=== PATIENT | female | born 1950 | race Caucasian/White ===

== ENCOUNTER 2023-04-02 10:40 | Emergency (ER) | payer MEDICARE, OTHER, SELFPAY ==
[2023-04-02] VITALS (18 sets, daily range): BP systolic 111–150; BP diastolic 65–83; PULSE 61–77; RESP 18; TEMP 36; O2SAT 92–99; BMI 22.2
--- NOTE | 2023-04-02 11:03 | ED.NURSE ---
#20 sl placed L AC, ekg done
--- NOTE | 2023-04-02 11:10 | ED_ITS ---
HPI - Chest Pain General Date Seen: 04/02/23 Chief Complaint: Chest Pain Stated Complaint: chest pains Time Seen by Provider: 04/02/23 11:02 History of Present Illness HPI narrative: This is a very pleasant 73-year-old female with a past medical history high cholesterol, hypothyroidism, osteoarthritis with previous left hip replacement, also COVID about 4 months ago (with recovery) presenting to the ER this morning for chest discomfort. When she woke up this morning she was having an achy pain in her right shoulder, which is not uncommon for her because she knows she has arthritis there. She took a diclofenac pill for that. She does not typically have to take diclofenac and does not take a lot of NSAIDs. She does not have any known history of gastritis or GERD. At about 10 15 this morning she is in her car preparing to going to her [employer] meeting. She began to have bad discomfort in her central chest. It made her nauseous. She was slightly sweaty. The discomfort lasted about a few minutes and then resolved but since then she has had ongoing mild nausea. No other definite symptoms. No syncope. No palpitations. No difficulty breathing. No pleuritic chest pain. No swelling in her legs. No pain through to her back or down to her abdomen. No fever. She has not had any other recent similar chest pains. She had been evaluated at an ER in the past (when she lived in [place]) and had a negative workup. She does not have any known heart disease. A few months ago when she was going through [place] she did have some fairly elevated blood pressure readings, apparently systolic blood pressure over 200, and had been on about 3 weeks of blood pressure medication but since then blood pressure has been much more normal. She is not on any long-term blood pressure medications. She does not take any anticoagulants. She traveled down from [place] in February. She does not have any leg swelling. Related Data Home Medications Medication Instructions Recorded Confirmed atorvastatin 04/02/23 buproprion 04/02/23 levothyroxine 04/02/23 trazodone 04/02/23 Allergies Allergy/AdvReac Type Severity Reaction Status Date / Time No Known Drug Allergies Allergy Verified 04/02/23 10:46 Review of Systems Narrative negative PFSH PFSH Social History Smoking Status: Never smoker How often do you have a drink containing alcohol: 2-4 times a month AUDIT-C Alcohol total score: 2 Non-prescribed substance use: denies use Exam Narrative Exam Narrative: Constitutional: Appears well-developed and well-nourished. Alert. Conversant. Non toxic. HENT: Head: Atraumatic. Nose: Nose normal. Mouth/Throat: Oral mucosa is clear and moist. no trismus. Pharynx normal. Tonsils symmetric. No tonsillar enlargement, erythema, or exudate. Eyes: Conjunctivae normal. EOM normal. Pupils equal, round, and reactive to light. No scleral icterus. Neck: Normal range of motion. Neck supple. No tracheal deviation present. No JVD Cardiovascular: Normal rate, regular rhythm. No gallop. No friction rub. No murmur heard. Symmetric radial and PT artery pulses Pulmonary/Chest: Effort normal. No stridor. No respiratory distress. No wheezes. No rales. No rhonchi . No tenderness. Abdominal: Soft. Bowel sounds normal. No distension. No mass. Minimal left upper quadrant tenderness. No rebound. No guarding. Musculoskeletal: RUE: Normal range of motion. No tenderness. No deformity LUE: Normal range of motion. No tenderness. No deformity RLE: Normal range of motion. No edema. No tenderness. No deformity LLE: Normal range of motion. No edema. No tenderness. No deformity Lymph: No cervical adenopathy. Neurological: Alert and oriented to person, place, and time. Normal strength. CN II-VII intact. No sensory deficit. GCS eye subscore is 4. GCS verbal subscore is 5. GCS motor subscore is 6. Normal coordination Skin: Skin is warm and dry. Good cap refill x4 extremities. No rash noted. No pallor. Normal capillary refill. Psychiatric: Normal mood. Normal affect. She is very polite Const Vital Signs, click to edit/add: Vital Signs - 24 hr 04/02/23 10:43 04/02/23 11:02 04/02/23 11:03 Temperature 96.8 F L Pulse Rate 77 77 Pulse Rate [Pulse Oximeter] 77 Respiratory Rate 18 Blood Pressure 144/65 H Blood Pressure [Left Upper Arm] 150/67 H Pulse Oximetry 98 97 97 Oxygen Delivery Method Room Air 04/02/23 11:30 04/02/23 11:32 04/02/23 11:33 Temperature Pulse Rate 62 61 62 Pulse Rate [Pulse Oximeter] Respiratory Rate Blood Pressure 125/82 Blood Pressure [Left Upper Arm] Pulse Oximetry 99 97 97 Oxygen Delivery Method 04/02/23 12:00 04/02/23 12:01 04/02/23 12:30 Temperature Pulse Rate 64 62 67 Pulse Rate [Pulse Oximeter] Respiratory Rate Blood Pressure 128/76 Blood Pressure [Left Upper Arm] Pulse Oximetry 98 96 99 Oxygen Delivery Method 04/02/23 12:32 04/02/23 12:33 04/02/23 13:03 Temperature Pulse Rate 64 64 Pulse Rate [Pulse Oximeter] Respiratory Rate Blood Pressure 129/83 Blood Pressure [Left Upper Arm] Pulse Oximetry 98 97 92 Oxygen Delivery Method 04/02/23 13:30 04/02/23 13:32 04/02/23 14:00 Temperature Pulse Rate 67 66 67 Pulse Rate [Pulse Oximeter] Respiratory Rate Blood Pressure 113/71 Blood Pressure [Left Upper Arm] Pulse Oximetry 97 98 98 Oxygen Delivery Method 04/02/23 14:02 04/02/23 14:30 04/02/23 14:32 Temperature Pulse Rate 69 69 66 Pulse Rate [Pulse Oximeter] Respiratory Rate Blood Pressure 119/70 111/71 Blood Pressure [Left Upper Arm] Pulse Oximetry 97 97 96 Oxygen Delivery Method Course Vital Signs Vital signs: Initial Vital Signs Temperature 96.8 F L 04/02/23 10:43 Temperature Source Temporal Artery Scan 04/02/23 10:43 Pulse Rate 77 04/02/23 10:43 Respiratory Rate 18 04/02/23 10:43 Blood Pressure 150/67 H 04/02/23 10:43 Blood Pressure Mean 94 04/02/23 10:43 Blood Pressure Position Supine 04/02/23 10:43 Pulse Oximetry 98 04/02/23 10:43 Oxygen Delivery Method Room Air 04/02/23 10:43 Vital Signs Temperature 96.8 F L 04/02/23 10:43 Pulse Rate 77 04/02/23 10:43 Respiratory Rate 18 04/02/23 10:43 Blood Pressure 150/67 H 04/02/23 10:43 Pulse Oximetry 98 04/02/23 10:43 Oxygen Delivery Method Room Air 04/02/23 10:43 Temperature 96.8 F L 04/02/23 10:43 Pulse Rate 66 04/02/23 14:32 Respiratory Rate 18 04/02/23 10:43 Blood Pressure 111/71 04/02/23 14:32 Pulse Oximetry 96 04/02/23 14:32 Oxygen Delivery Method Room Air 04/02/23 10:43 MDM - Chest Pain MDM Narrative Medical decision making narrative: This patient presents to the ER today for evaluation of chest pain[]. Differential was broad. No evidence of palpitations, syncope or other cardiac dysrhythmia. We considered possible ACS, however workup with EKG and troponin is negative. HEART score is 3. Given time since onset of symptoms, we did check delta enzymes here in the ER []. EKG shows no evidence for pericarditis. Clinical presentation not suggestive of myocarditis. Chest x-ray shows no evidence for pneumonia, pneumothorax, pulmonary edema, pleural effusion, rib fracture, cardiomegaly. Mediastinum is normal on the x-ray. The patient has no ripping or tearing pain through to the back and has symmetric pulses on exam, no other acute neuro findings so I doubt aortic dissection. Risk of radiation and contrast exposure would outweigh the benefit of CT angiogram. We considered PE for this patient. She has no signs of DVT and no history of PE or DVT. She did have a recent about a month ago travel from [place] down here to [place]. Overall low risk. d dimer is normal. No wheezing or bronchospasm to suggest COPD/asthma. No signs of chest wall cellulitis, shingles, injury. She did take an NSAID this morning for her shoulder pain but has no history of GERD, esophagitis, or gastritis. Lipase normal. No other signs of severe intra-abdominal pathology such as cholecystitis, early appendicitis. Would hold off on advanced imaging of her abdomen for now. With reasonable clinical confidence, I think the patient is safe for outpatient follow up. Discussed return precautions. Questions answered. Patient voices comfort with the plan. Discussed the need for outpatient follow-up with primary care and potentially stress testing or further workup if she has any more episodes of chest pain. Precautions for return to the ER reviewed. Lab Data Labs: Lab Results 04/02/23 04/02/23 Range/Units 10:58 14:06 WBC 4.41 L (4.50-11.00) K/uL RBC 4.09 (4.00-5.20) m/uL Hgb 12.9 (12.0-16.0) gm/dL Hct 39.2 (33.0-51.0) % MCV 96 (80-100) fL MCH 32 (26-34) pg MCHC 33 (32-36) gm/dL RDW Coeff of [place]lick 12.4 (11.5-15.5) % Plt Count 194 (140-440) K/uL Neut % (Auto) 56.5 (42.0-72.0) % Lymph % (Auto) 30.8 (20-44) % [place] % (Auto) 9.5 (0.0-11.0) % Eos % (Auto) 2.5 (0.0-7.0) % Baso % (Auto) 0.5 (0.0-3.0) % Neut # (Auto) 2.50 (1.7-7.0) K/uL Lymph # (Auto) 1.40 (0.90-2.90) K/uL [place] # (Auto) 0.40 (0.00-0.90) K/UL Eos # (Auto) 0.10 (0.00-0.50) K/uL Baso # (Auto) 0.00 (0.00-0.30) K/uL Abs Immat Gran (auto) 0.00 (0.00-0.30) K/uL Imm/Tot Granulo (auto) 0.2 % D-Dimer Quant (PE/DVT) 0.31 (0.00-0.50) ug/ml Sodium 136 (135-149) mmol/L Potassium 3.7 (3.6-5.1) mmol/L Chloride 103 (96-114) mmol/L Carbon Dioxide 28 (20-32) mmol/L BUN 17 (7-30) mg/dL Creatinine 0.8 (0.5-1.5) mg/dL Estimated Creat Clear 54.18 Estimated GFR 78 ml/min Glucose 78 (60-115) mg/dL Calcium 8.8 (8.4-10.6) mg/dL Total Bilirubin 0.6 (0.1-1.5) mg/dL AST 25 (12-35) U/L ALT 24 (4-35) U/L Alkaline Phosphatase 50 (40-150) U/L Troponin I < 0.01 L < 0.01 L (0.01-0.04) ng/mL Total Protein 6.6 (6.0-8.3) g/dL Albumin 4.0 (3.3-5.0) g/dL Lipase 163 (23-300) U/L Imaging Data Chest x-ray: Attestation: I have reviewed the pertinent imaging results. Radiologist's impression: IMPRESSION: Negative chest. ECG Data Attestation: I personally reviewed and interpreted this ECG as follows: ECG interpretation date: 04/02/23 ECG interpretation time: 11:10 Interpretation: Normal sinus rhythm rate 81 MO 136 QRS axis normal axis. No pathologic Q-waves. ST segment/T wave: No ST segment elevation or depression. No T-wave inversion. QTc: 450 Discharge Plan Discharge Clinical Impression: Chest pain Patient Disposition: Home, Self-Care Condition: Stable Instructions: Chest Pain (ED) Additional Instructions: As we discussed, please come back to the ER right away if you have any concerning symptoms especially worsening episodes of chest pain, trouble breathing, fainting, or any concerns. Please recheck with your regular doctor within the next 5-7 days. Prescriptions: No Action buproprion levothyroxine atorvastatin trazodone Follow Up/Referrals: Provider,Not a Local [Primary Care Provider] - Stand Alone Forms: [employer] Info Instructions
--- NOTE | 2023-04-02 11:29 | CRLHL7_ITS ---
For Patients: As a result of the Century Cures Act, medical imaging exams and procedure reports are released immediately into your electronic medical record. You may view this report before your referring provider. If you have questions, please contact your health care provider. INDICATION: Chest pain TECHNIQUE: Two view chest. FINDINGS: The lungs are clear. The heart, mediastinum and pulmonary vessels are of normal size. There is no evidence of pleural disease. IMPRESSION: Negative chest. Dictated by Ted Borjas MD @ 04/02/2023 12:23:14 PM (Electronically Signed)
[2023-04-02 11:35] LABS: Basophils Percent Auto 0.5 % (0.0-3.0); Eosinophils Percent Auto 2.5 % (0.0-7.0); Hematocrit 39.2 % (33.0-51.0); Hemoglobin* 12.9 gm/dL (12.0-16.0); Immature Granulocytes Pct Auto 0.2 %; Lymphocytes Percent Auto 30.8 % (20-44); Mean Corpuscular HGB Conc 33 gm/dL (32-36); Mean Corpuscular Hemoglobin 32 pg (26-34); Mean Corpuscular Volume 96 fL (80-100); Monocytes Percent Auto 9.5 % (0.0-11.0); Neutrophils Percent Auto 56.5 % (42.0-72.0); Platelet Count* 194 K/uL (140-440); RDW Coefficient of Variation % 12.4 % (11.5-15.5); Red Blood Count 4.09 m/uL (4.00-5.20); White Blood Count* 4.41 K/uL (4.50-11.00)
[2023-04-02] MEDS: ASPIRIN 81 MG TAB.CHEW 324 MG PO (11:36)
[2023-04-02] MEDS: ONDANSETRON 2 MG/ML inj 4 MG IVP (11:36)
[2023-04-02 11:38] LABS: Slide Review Reflex No
[2023-04-02 11:44] LABS: Chloride* 103 mmol/L (96-114); Potassium* 3.7 mmol/L (3.6-5.1); Sodium* 136 mmol/L (135-149)
[2023-04-02 11:46] LABS: Aspartate Amino Transferase* 25 U/L (12-35); Bilirubin Total* 0.6 mg/dL (0.1-1.5); Carbon Dioxide* 28 mmol/L (20-32); Creatinine* 0.8 mg/dL (0.5-1.5); Est. Creatinine Clearance* 54.18; Estimated Glomerular Filt Rate 78 ml/min; Total Protein* 6.6 g/dL (6.0-8.3)
[2023-04-02 11:47] LABS: Alanine Aminotransferase* 24 U/L (4-35); Alkaline Phosphatase* 50 U/L (40-150); Blood Urea Nitrogen* 17 mg/dL (7-30); Calcium* 8.8 mg/dL (8.4-10.6); D Dimer Quantitative* 0.31 ug/ml (0.00-0.50); Glucose* 78 mg/dL (60-115); Lipase* 163 U/L (23-300)
[2023-04-02 12:01] LABS: Troponin I* < 0.01 ng/mL (0.01-0.04)
[2023-04-02 14:46] LABS: Troponin I* < 0.01 ng/mL (0.01-0.04)
== END 2023-04-02 15:13 | disposition home or self-care (01) ==
PROVIDERS: Emergency Provider Emergency Medicine
DX: R07.9 Chest pain, unspecified (principal)
CPT/HCPCS: 36415; 71046; 80053; 83690; 84484; 85025; 85379; 93005; 96374; 99284; A9270; J2405

== ENCOUNTER 2023-05-26 15:59 | Outpatient (CLI) | payer MEDICARE, OTHER, SELFPAY | END 2023-05-26 16:00 | disposition home or self-care (01) | PROVIDERS: Visit Provider Family Medicine | DX: R53.83 Other fatigue (principal); H53.9 Unspecified visual disturbance | CPT/HCPCS: 80053; 84443; 85651; 86140 ==

== ENCOUNTER 2023-07-25 14:51 | Outpatient (CLI) | payer MEDICARE, OTHER, SELFPAY | END 2023-07-25 14:52 | disposition home or self-care (01) | LOC: AMB 07-27 09:44 | PROVIDERS: PCP Family Medicine; Visit Provider Family Medicine | DX: R53.1 Weakness (principal); I10 Essential (primary) hypertension | CPT/HCPCS: A0998 ==

== ENCOUNTER 2023-07-25 15:15 | Emergency (ER) | payer MEDICARE, OTHER, SELFPAY ==
[2023-07-25] VITALS (9 sets, daily range): BP systolic 172–184; BP diastolic 90–97; PULSE 77–89; RESP 20; TEMP 37; O2SAT 97–98; BMI 22.2
[2023-07-25] MEDS: lisinopriL 20 MG TABLET PO (19:54)
--- NOTE | 2023-07-25 20:11 | ED_ITS ---
HPI - General Adult General Date Seen: 07/25/23 Chief complaint: Hypertension Stated complaint: High BP Time Seen by Provider: 07/25/23 19:26 Source: patient Mode of arrival: ambulatory Limitations: no limitations History of Present Illness HPI narrative: Patient is a 73-year-old woman who comes in secondary to elevated blood pressure readings. She notes that last week she had some respiratory symptoms and had a positive COVID test. She tested negative today and those symptoms have improved. She says that she had COVID earlier in the year and had problems with her blood pressure at that time. She was in [place] at the time and was seen in an ER, started on Paxlovid and lisinopril. She said that she took the lisinopril for a while but was watching her blood pressures and they seem to normalize so she discontinued the lisinopril. Otherwise, she says her blood pressures do not tend to be elevated. However, today she noted high blood pressures around 200 systolic. She notes that she felt somewhat shaky and lightheaded, she did not have severe headache or chest pain, difficulty breathing, fainting, confusion, or other neurologic changes or any other complaints. She is now feeling fine. She does not smoke, here today with her . Related Data Home Medications Medication Instructions Recorded Confirmed atorvastatin 04/02/23 05/26/23 buproprion 150 mg DAILY 04/02/23 05/26/23 levothyroxine DAILY 04/02/23 05/26/23 trazodone 25 mg HS 04/02/23 05/26/23 bupropion HCl 75 mg tablet 75 mg PO DAILY 07/25/23 07/25/23 Previous Rx's Medication Instructions Recorded lisinopril 20 mg tablet 20 mg PO DAILY #30 tabs 07/25/23 Allergies Allergy/AdvReac Type Severity Reaction Status Date / Time No Known Drug Allergies Allergy Verified 07/25/23 15:28 Review of Systems Status of ROS: Reports: 10 or more systems reviewed and unremarkable except as noted in History and below [facility] Medical History Vision changes ?H53.9 - Unspecified visual disturbance (ICD-10) Fatigue ?R53.83 - Other fatigue (ICD-10) Social History Smoking Status: Never smoker How often do you have a drink containing alcohol: 2-4 times a month AUDIT-C Alcohol total score: 2 Non-prescribed substance use: denies use Exam Narrative: Exam Narrative: Vital signs as noted above. In general, an alert, well-appearing patient. Head: Normocephalic, atraumatic. Eyes: Pupils are equal reactive. Extraocular movements are full. Conjunctivae are normal. ENT: Mucous membranes are moist. Neck: Supple without lymphadenopathy. Heart: Regular rate and rhythm. No murmur or rub. Lungs: Clear bilaterally. No increased work of breathing, crackles or wheezes. Abdomen: Soft and nontender. No organomegaly. Extremities: Well perfused. No edema. No calf tenderness. Pulses intact. Neurologic: Patient is alert and oriented to person and place. Speech is fluent. Face is symmetric. Moves all extremities equally. Affect: Normal. Skin: Warm and dry. Well perfused. Const: Vital Signs, click to edit/add: Vital Signs - 24 hr 07/25/23 15:28 07/25/23 18:24 07/25/23 18:25 Temperature 98.6 F Pulse Rate 80 77 Pulse Rate [Pulse Oximeter] 89 Respiratory Rate 20 Blood Pressure 184/97 H Blood Pressure [Ri ght Upper Arm] 184/96 H Pulse Oximetry 98 98 98 Oxygen Delivery Me thod Room Air 07/25/23 18:30 07/25/23 18:31 07/25/23 18:45 Temperature Pulse Rate 77 79 79 Pulse Rate [Pulse Oximeter] Respiratory Rate Blood Pressure 172/92 H Blood Pressure [Ri ght Upper Arm] Pulse Oximetry 98 98 98 Oxygen Delivery Me thod 07/25/23 19:00 07/25/23 19:01 07/25/23 19:25 Temperature Pulse Rate 78 78 79 Pulse Rate [Pulse Oximeter] Respiratory Rate Blood Pressure 175/90 H Blood Pressure [Ri ght Upper Arm] Pulse Oximetry 98 98 97 Oxygen Delivery Me thod Course Course ED Course: She had an EKG on arrival which showed a normal sinus rhythm, ventricular rate of 78 beats per minute. No ST segment changes. T-waves are unremarkable. Blood pressure has gradually improved and she was most recently 175/90. She is asymptomatic. I do not think she needs extensive workup at this time, discussed with her I think it is reasonable to put her back on lisinopril so I will prescribe that for her. I would recommend that she follow up with primary care in the next week or 2 to review how she is doing on the medication. Return to the emergency department at any time for acute changes. Comfortable with that plan. Vital Signs Vital signs: Initial Vital Signs Temperature 98.6 F 07/25/23 15:28 Temperature Source Temporal Artery Scan 07/25/23 15:28 Pulse Rate 89 07/25/23 15:28 Respiratory Rate 20 07/25/23 15:28 Blood Pressure 184/96 H 07/25/23 15:28 Blood Pressure Mean 125 H 07/25/23 15:28 Blood Pressure Position Sitting 07/25/23 15:28 Pulse Oximetry 98 07/25/23 15:28 Oxygen Delivery Method Room Air 07/25/23 15:28 Vital Signs Temperature 98.6 F 07/25/23 15:28 Pulse Rate 89 07/25/23 15:28 Respiratory Rate 20 07/25/23 15:28 Blood Pressure 184/96 H 07/25/23 15:28 Pulse Oximetry 98 07/25/23 15:28 Oxygen Delivery Method Room Air 07/25/23 15:28 Temperature 98.6 F 07/25/23 15:28 Pulse Rate 79 07/25/23 19:25 Respiratory Rate 20 07/25/23 15:28 Blood Pressure 175/90 H 07/25/23 19:01 Pulse Oximetry 97 07/25/23 19:25 Oxygen Delivery Method Room Air 07/25/23 15:28 Medications Administered Medications: Generic Name Dose Route Start Last Admin Trade Name Freq PRN Reason Stop Dose Admin Lisinopril 20 mg 07/25/23 19:35 07/25/23 19:54 Lisinopril 20 Mg Tablet PO 07/25/23 19:36 20 mg ONCE ONE Administration Discharge Plan Discharge Clinical Impression: BP (high blood pressure) Patient Disposition: Home, Self-Care Condition: Stable Instructions: Hypertension (ED) Additional Instructions: Lisinopril as prescribed. Primary care follow-up in 1-2 weeks for recheck. Return at any time for acute worsening or changes. Prescriptions: New lisinopril 20 mg tablet 20 mg PO DAILY Qty: 30 2RF No Action buproprion 150 mg DAILY levothyroxine DAILY atorvastatin trazodone 25 mg HS bupropion HCl 75 mg tablet 75 mg PO DAILY Follow Up/Referrals: Provider,Not a Local [Referring] - Stand Alone Forms: [employer] Info Instructions
== END 2023-07-25 20:22 | disposition home or self-care (01) ==
LOC: ED 19:44
PROVIDERS: Emergency Provider Emergency Medicine; PCP Family Medicine
DX: I10 Essential (primary) hypertension (principal)
CPT/HCPCS: 99283; A9270

== ENCOUNTER 2024-03-27 08:09 | Outpatient (CLI) | payer MEDICARE, OTHER, SELFPAY ==
--- OUTSIDE RECORDS SUMMARY | 2024-04-02 05:48 | XMS_ITS | Clinical Summary ---
Author Organization [facility] Address [place], [place] [address] Care Team Providers Care Information Systems Specialist Name Role Phone Montserrat Espinoza MD Primary Care Provider [phone] Allergies No known active allergies Medications Medication Sig Dispensed Refills Start Date End Date Status buPROPion 75 mg tablet Take 75 mg by mouth two times daily. Based on updated ISMP guidelines, DO NOT crush or chew. Active buPROPion (Wellbutrin SR) 150 mg Sustained-Release tablet Take 150 mg by mouth two times daily. Active atorvastatin (LIPITOR) 10 mg tablet Take 10 mg by mouth once daily. Active levothyroxine (SYNTHROID) 50 mcg tablet Take 50 mcg by mouth before breakfast. Active valACYclovir (Valtrex) 1 gram tablet Take 1 g by mouth two times daily. Active trazodone (DESYREL) 25 mg as half tablet Take by mouth at bedtime. Active Social History Tobacco Use Types Packs/Day Years Used Date Smoking Tobacco: Never Passive Smoke Exposure: Never Smokeless Tobacco: Never Tobacco Cessation:Counseling Given: Not Answered Alcohol Use Standard Drinks/Week Comments Yes 0 (1 standard drink = 0.6 oz pur e alcohol) 2 glass wine monthly PHQ-2 Answer Date Recorded PHQ-2 TOTAL SCORE 0 04/06/2023 Social Connections Answer Date Recorded Frequency of Communication with Friends and Fami ly 0 04/06/2023 Financial Resource Strain Answer Date R ecorded Difficulty of Paying Living Expenses 3 04/06/2023 Difficulty of Paying Living Expenses Not on file 04/06/2023 Food Insecurity Answer Date Recorded Worried About Running Out of Food in the Last Ye ar 1 04/06/2023 Transportation Needs Answer Date Record ed Lack of Transportation (Medical) 1 04/06/2023 Housing Stability Answer Date Recorded Unable to Pay for Housing in the Last Year 1 04/06/2023 Sex and Gender Information Value Date Recorded Sex Assigned at Not on file Gender Identity Not on file Sexual Orientation Not on file Obstetrics History Last Filed Vital Signs Vital Sign Reading Time Taken Comments Blood Pressure 127/60 05/11/2023 1:32 PM CDT Pulse 71 05/11/2023 1:32 PM CDT Temperature - - Respiratory Rate - - Oxygen Saturation 97% 05/11/2023 1:32 PM CDT Inhaled Oxygen Concentration - - Weight 70.7 kg (155 lb 12.8 oz) 04/06/2023 9:58 AM CDT Height 177.8 cm (5' 10) 04/06/2023 9:58 AM CDT Body Mass Index 22.35 04/06/2023 9:58 AM CDT Plan of Treatment Health Maintenance Due Date Last Done Comments Tdap 1961 Hepatitis C screening for age 18-79 1968 Tetanus booster 1970 Colonoscopy through age 75 1995 Lipids for age 45-75 1995 Mammogram for age 45-75 1995 Zoster (shingles) series for age 50+ (1 of 2) 03/25/20 00 DEXA/DXA scan for age 65+ 2015 Medicare Wellness for age 65+ 2015 Pneumococcal series for age 65+ (1 of 1 - PCV) 015 COVID-19 vaccine series (2022- season) 3 BMI (ht and wt on same day) for age 18+ 04/06/2024 0 04/06/2023 Depression screening for age 12+ 04/06/2024 04/06/20 23 Influenza for age 65+ 04/21/2024 Care Teams Information Systems Specialist Relationship Specialty Start Date End Date Montserrat Espinoza MD [address] [place] [address] PCP - General Family Practice 04/03/23
== END 2024-03-27 08:10 | disposition home or self-care (01) ==
LOC: NFLDREF 04-02 05:47
PROVIDERS: PCP Family Medicine; Referring Provider Family Medicine; Visit Provider Family Medicine
DX: E78.5 Hyperlipidemia, unspecified (principal); E03.9 Hypothyroidism, unspecified; R53.83 Other fatigue; E04.1 Nontoxic single thyroid nodule; F32.A Depression, unspecified
CPT/HCPCS: 80053; 80061; 84443

== ENCOUNTER 2024-06-04 13:00 | Outpatient (RCR) | payer MEDICARE, OTHER, SELFPAY ==
--- NOTE | 2024-05-20 16:17 | PT.OPEX ---
PT [facility] PT [facility] Eval Start: 05/20/24 09:21 Freq: Status: Active Protocol: Document 05/20/24 09:23 MARIA GUADALUPEDarlene (Rec: 05/20/24 16:16 CHET [id number]) E-signed By Hillary Borden, PT Physical Therapy Outpatient Evaluation Insurance Information Recert Due Date 08/14/24 Insurance Name Medicare B,Other; See Comments Insurance Information/Comments Medical Diagnosis Cervicalgia Treating Diagnosis Neck pain, limited neck ROM, DNF and periscapular weakness Referring MD Darden Subjective Subjective Lindsay reports to PT with primary complaint of acute on chronic neck pain. 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 She has difficulty tilting her head and turning her head to the side. She has pain that radiates down into the right side of her neck that limits her ability to drive long distances, sleep and knit without pain. She does participate in yoga which helps some however limited d/t arthritis in her hands. She occasionally has headaches and sharp pain in the temples of her head. Often times these resolve with changes in her head/neck positioning. PMH: HTN, B BRITNEY, patient reported low back scoliosis on x-ray Pain Comments 11/28 worst Date of Last Physician Visit 03/11/24 Current Work Status Retired Objective Other/Pertinent Objective Posture: -forward head and rounded shoulders, L iliac crest ~1/2 higher than R, lumbar convex curve R, R shoulder higher than L Cervical ROM: -R Rot: 36 -L Rot: 37 -R Sidebend: 8 -L Sidebend: 8 Shoulder ROM: -grossly WNL however about 15 deg deficit R FF compared to L Increased tone R UT and levator Hypomobile L cervical sideglide throughout C-spine DNF difficulty achieving chin tuck position Functional Test Performed & Score NDI: 13, 26% Assessment Assessment/Impression Patient is a 74 year old female presenting to physical therapy for evaluation and treatment of acute on chronic neck pain. Patient presents with limited cervical rotation /SB, DNF and periscapular weakness, poor postural positioning. These impairments are limiting the patients ability to knit, stand, pick- up and hold her grandchild, drive long distances, sleep. Patient appears motivated to participate in PT and presents with good prognosis to improve mobility, strength, proprioception and return to functional activities with skilled physical therapy intervention Primary Functional Limitations knit, stand, pick-up and hold her grandchild, drive long distances, sleep Plan of Care Rehabilitation Potential Good Physical Therapy Goals In 6 visits: Pt will demonstrate at least 45 deg cervical rotation in order to improve ability to drive Pt will demonstrate WNL and symmetric UE flexion in order to participate in yoga and reach/lift grandchild with <2/ 10 pain Pt will demonstrate improved sitting posture without cueing in consecutive sessions in order to decrease strain on neck and shoulder In 10 visits: Pt will exhibit 10% improvement (or 5 points) in NDI Outcome measure to demonstrate functional improvement and progress towards goals. Pt will be able to maintain DNF chin tuck + lift for 30 seconds with minimal accessory muscle compensation in order to demonstrate increased DNF strength. Pt will report <2/10 pain with all lifting and recreational activities Treatment Plan/Direct Interventions Dry Needling,Ice/Cold/ Vasopneumatic,Joint Mobilization,Manual Therapy, Neuromuscular Re-ed,Self-Care/ Home Management,Therapeutic Activities,Therapeutic Exercises Frequency/Duration 1x/wk for 4 weeks with additional 4-6 sessions prn based on progress Patient Will Be Discharged From Therapy Completion of LTG(s), Independent w/HEP, Independently Progressing Evaluation Billing Untimed Code Treatment Minutes 18 Complexity Low Certification Information Initial Certification Date 05/20/24 Ending Certification Date 08/14/24 Provider Signature Required Yes Provider Signature Shows Agreement With POC & Medical Necessity Physician NPI Number Write NPI# Here Physician Comment/Change : Physician Signature & Date Requested Please Sign/Date Here
== END 2024-09-23 16:29 | disposition home or self-care (01) ==
PROVIDERS: PCP Family Medicine; Visit Provider Family Medicine
DX: M54.2 Cervicalgia (principal); G89.29 Other chronic pain; Z74.09 Other reduced mobility; R29.898 Other symptoms and signs involving the musculoskeletal system; Z51.89 Encounter for other specified aftercare
CPT/HCPCS: 97012; 97110; 97140; 97161

== ENCOUNTER 2024-07-12 11:01 | Outpatient (CLI) | payer MEDICARE, OTHER, SELFPAY ==
--- OUTSIDE RECORDS SUMMARY | 2024-07-12 11:04 | XMS_ITS | Clinical Summary ---
Author Organization [facility] Address [place], [place] [address] Care Team Providers Care Salt Miner Name Role Phone Montserrat Espinoza MD Primary Care Provider [phone] Allergies No known active allergies Medications Medication [...] of Communication with Friends and Fami ly Not on file 04/08/2024 Financial Resource Strain Answer Date R ecorded [...] 65+ (1 of 1 - PCV) 015 BMI (ht and wt on same day) for age 18+ 04/06/2024 0 04/06/2023 Depression screening for age 12+ 04/06/2024 04/06/20 23 COVID-19 vaccine series ( season) 4 Influenza for age 65+ 04/21/2024 Care Teams Salt Miner Relationship Specialty Start Date End Date Montserrat Espinoza MD [address] [place] [address] PCP - General Family Practice 04/03/23
--- NOTE | 2024-07-12 11:15 | CRLHL7_ITS ---
For Patients: As a result of the Cures Act, medical imaging exams and procedure reports are released immediately into your electronic medical record. You may view this report before your referring provider. If you have questions, please contact your health care provider. INDICATION: Follow-up nodules COMPARISON: Report from outside institution 02/11/2022 TECHNIQUE: Carvajal scale and color Doppler images were acquired of the thyroid gland. FINDINGS: Thyroid echotexture is diffusely heterogeneous. Isthmus measures less than 1 cm. Solid and cystic nodule inferior pole left thyroid lobe measures 5 x 2 x 5 millimeters, TR 3, previously measuring 4 x 4 x 3 millimeters. Solid and cystic nodule upper pole left thyroid lobe measures 7 x 6 x 6 millimeters, TR 3, previously measuring 6 x 6 x 5 millimeters. Additional solid and cystic nodule midportion left thyroid lobe measures 13 x 7 x 10 millimeters, TR 3, previously measuring 8 x 6 x 11 millimeters. Solid and cystic nodule right thyroid lobe midportion measures 9 x 4 x 7 millimeters, TR 3, previously measuring 10 x 8 x 7 millimeters. Additional solid and cystic TR 3 nodule upper pole right thyroid lobe measures 9 x 6 x 7 millimeters, previously measuring 9 x 6 x 5 millimeters. The right lobe measures 4.5 x 1.2 x 1.4 cm and the left lobe measures 3.9 x 1.3 x 1.1 cm in size. The color Doppler images demonstrate normal vascularity. There is no evidence of cervical lymphadenopathy or parathyroid mass. IMPRESSION: Bilateral TR 3 nodules measuring up to 1.3 cm, not significantly changed. No further follow-up indicated. Dictated by Geoff Moncada MD @ 07/12/2024 12:51:42 PM (Electronically Signed)
== END 2024-07-12 11:02 | disposition home or self-care (01) ==
LOC: US 11:02
PROVIDERS: PCP Family Medicine; Visit Provider Family Medicine
DX: E04.1 Nontoxic single thyroid nodule (principal)
CPT/HCPCS: 76536

== ENCOUNTER 2024-07-15 13:15 | Outpatient (CLI) | payer MEDICARE, OTHER, SELFPAY ==
--- OUTSIDE RECORDS SUMMARY | 2024-07-15 13:17 | XMS_ITS | Clinical Summary ---
Author Organization [facility] Address [place], [place] [address] Care Team Providers Care Account Receivable Clerk Name Role Phone Montserrat Espinoza MD Primary Care Provider [phone] Allergies No known active allergies Medications Medication [...] Influenza for age 65+ 04/21/2024 Care Teams Account Receivable Clerk Relationship Specialty Start Date End Date Montserrat Espinoza MD [address] [place] [address] PCP - General Family Practice 04/03/23
--- NOTE | 2024-07-15 13:20 | CRLHL7_ITS ---
For Patients: As a result of the Century Cures Act, medical imaging exams and procedure reports are released immediately into your electronic medical record. You may view this report before your referring provider. If you have questions, please contact your health care provider. BILATERAL SCREENING MAMMOGRAM WITH COMPUTER-AIDED DETECTION AND TOMOSYNTHESIS TECHNIQUE: CC and MLO views were obtained. These mammographic images have been obtained using full-field digital technique. These mammographic images were interpreted with the benefit of computer-aided detection. Breast Tomosynthesis was used in this interpretation. COMPARISON FILM: 03/17/21, 08/16/18. FINDINGS: There are scattered areas of fibroglandular density. IMPRESSION: There is no radiographic evidence for malignancy. ASSESSMENT: BI-RADS Category 1: Negative RECOMMENDATION: Routine screening mammogram in 1 year. A lay language report of this examination will be provided to the patient. Geoff Moncada M.D. Diagnostic Radiologist [email or web address] SP/Dictated by: Geoff Moncada MD @ 07/17/2024 8:49:00 AM (Electronically Signed)
== END 2024-07-15 13:16 | disposition home or self-care (01) ==
LOC: MAMMO 13:15
PROVIDERS: PCP Family Medicine; Visit Provider Family Medicine
DX: Z12.31 Encounter for screening mammogram for malignant neoplasm of breast (principal)
CPT/HCPCS: 77063; 77067

== ENCOUNTER 2024-09-25 14:46 | Outpatient (CLI) | payer MEDICARE, OTHER, SELFPAY | END 2024-09-25 14:47 | disposition home or self-care (01) | LOC: NFLDREF 14:47 | PROVIDERS: PCP Family Medicine; Visit Provider Family Medicine | DX: R82.90 Unspecified abnormal findings in urine (principal) | CPT/HCPCS: 80053; 87086 ==

== ENCOUNTER 2024-10-31 09:00 | Outpatient (RCR) | payer MEDICARE, OTHER, SELFPAY ==
--- NOTE | 2024-10-18 12:07 | PT.OPEX ---
PT [facility] Eval PT [facility] Outpatient Eval Start: 10/18/24 07:42 Freq: Status: Active Protocol: Document 10/18/24 07:43 MARIA GUADALUPEV (Rec: 10/18/24 11:59 KLV [id number]) E-signed By Hillary Borden, PT Physical Therapy Outpatient Evaluation Insurance Information Recert Due Date 01/12/25 Insurance Name Medicare B,Other; See Comments Insurance Information/Comments [facility] Medical Diagnosis Back/neck program Treating Diagnosis Cervicalgia, limited cervical ROM, DNF/postural weakness Imaging Report Information c-spine x-ray 12/28/23: degenerative changes at C5-C6 and C6-C7 (DDD and facet arthrosis) Lumbar spine x-ray 09/07/23: advanced degenerative joint disease/DDD at L4-5 and L5-S1 Referring MD Darden Subjective Subjective Lindsay reports to PT with primary complaint of acute on chronic neck and back pain. Recent x-ray results indicated above done in [place]. Did 3 visits of PT in Apr/May. Had difficulty incorporating exercises into her daily routine at that time. Notes pain has remained unchanged since that time. Would like to start formal spine program 2x /wk to further address her neck symptoms at this time. She notes more pain on the right side of her neck into her UT as well as limitation more with left rotation. No radicular symptoms beyond this . She does note loose body found on x-ray in right shoulder. Has not had anything done for this. She mostly does yoga 2x/wk where she has to modify d/t spine issues as well as wrist pain and walks the dog 1.5-2 miles daily. She notes lumbar scoliosis seen on x-ray that she thinks is d/ t her THAs. She does not heel insert does help with low back discomfort. Also notes headaches in front of head that is alleviated with change in neck position. PMH: B BRITNEY, HTN, L ankle fx Pain Comments 02/27 worst Date of Last Physician Visit 03/11/24 Current Work Status Retired Objective Other/Pertinent Objective Seated posture: sight forward head and rounded shoulders, excessive cervical lordosis Dermatome: intact to light touch throughout B UE Cervical ROM: -Flx: WNL no pain -Ext: WNL no pain -R Rot: 42 -L Rot: 40 -R Sidebend: 6 -L Sidebend: 6 DNF strength: unable to lift from chin tuck position without accessory muscle use and pain Shoulder ROM: grossly WNL however 15 deg deficit with FF compared to L, pain above 90 deg with shoulder abd most likely d/t loose body found in shoulder Functional Test Performed & Score NDI: 11, 22% Assessment Assessment/Impression Patient is a 74 year old female presenting to physical therapy for evaluation and treatment of acute on chronic cervical pain. Patient presents with limited cervical mobility (SB>rotation)/(L>R rotation), hypomobility throughout lower cervical R>L, DNF/postural weakness, fair postural positioning. These impairments are limiting the patients ability to drive/ sleep comfortably, read, concentrate, participate fully in yoga. Patient appears motivated to participate in PT and presents with good prognosis to improve mobility, strength, proprioception and return to functional activities with skilled physical therapy intervention. Primary Functional Limitations drive/sleep comfortably, read, concentrate, participate fully in yoga Plan of Care Rehabilitation Potential Good Physical Therapy Goals In 4 visits: Patient will demonstrate at least 50 deg cervical rotation in order to improve ability to drive Patient will be able to sleep with waking 1 time or less at night d/t pain Patient will demonstrate near symmetric shoulder FF in order to participate more in yoga and lift grandchild. In 8 visits: Pt will exhibit 10% improvement (or 5 points) in NDI Outcome measure to demonstrate functional improvement and progress towards goals. Pt will report <2/10 with recreational and lifting related activities. Pt will be able to maintain DNF chin tuck + lift for 30 seconds with minimal accessory muscle compensation in order to demonstrate increased DNF strength. Pt will be independent with self management of symptoms Treatment Plan/Direct Interventions Dry Needling,Ice/Cold/ Vasopneumatic,Joint Mobilization,Manual Therapy, Neuromuscular Re-ed,Self-Care/ Home Management,Therapeutic Activities,Therapeutic Exercises Frequency/Duration 1-2x/wk for 8 weeks Patient Will Be Discharged From Therapy Completion of LTG(s), Independent w/HEP, Independently Progressing Evaluation Billing Untimed Code Treatment Minutes 20 Complexity Low Certification Information Initial Certification Date 10/18/24 Ending Certification Date 01/12/25 Provider Signature Required Yes Provider Signature Shows Agreement With POC & Medical Necessity Physician NPI Number Write NPI# Here Physician Comment/Change : Physician Signature & Date Requested Please Sign/Date Here
== END 2025-02-28 23:59 | disposition home or self-care (01) ==
PROVIDERS: PCP Family Medicine; Visit Provider Family Medicine
DX: M54.2 Cervicalgia (principal); G89.29 Other chronic pain; M47.812 Spondylosis without myelopathy or radiculopathy, cervical region; Z74.09 Other reduced mobility; Z51.89 Encounter for other specified aftercare
CPT/HCPCS: 97110; 97140; 97161

== ENCOUNTER 2025-01-14 12:08 | Emergency (ER) | payer MEDICARE, OTHER, SELFPAY ==
[2025-01-14] VITALS (18 sets, daily range): BP systolic 130–151; BP diastolic 72–109; PULSE 61–70; RESP 6–56; TEMP 36.5; O2SAT 97–100; BMI 23.0
--- OUTSIDE RECORDS SUMMARY | 2025-01-14 12:10 | XMS_ITS | Clinical Summary ---
Author Organization [facility] Address [address] [place] [id number] Care Team Providers Care Credit Risk Modeler Name Role Phone Montserrat Espinoza MD Primary Care Provider [phone] Allergies No known active allergies Medications buPROPion 75 mg tablet Take 75 mg by mouth two times daily. Based on updated ISMP guidelines, DO NOT crush or chew. Active buPROPion (Wellbutrin SR) 150 mg Sustained-Relea se tablet Take 150 mg by mouth two [...] Housing in the Last Year 1 04/06/2023 Comments No Sex and Gender Information Value Date Recorded Sex Assigned at Not on file Legal Sex Female 11:32 AM CDT Gender Identity Not on file Sexual Orientation [...] Comments Tdap 1961 Hepatitis C screening for ag e 18-79 1968 Tetanus booster 1970 Colonoscopy through age 75 1995 Lipids for age 45-75 1995 Mammogram for age 45-75 1995 Pneumococcal series for age 50+ (1 of 1 - PCV) 2000 Zoster (shingles) series for age 50+ (1 of 2) 2000 DEXA/DXA scan for age 65+ 2015 Medicare Wellness for age 65+ 2015 BMI (ht and wt on same day) for age 18+ 04/06/2024 04/06/2023 Depression screening for age 12+ 04/06/2024 04/06/20 23 COVID-19 vaccine series ( - season) 2024 RSV vaccine for adults or (1 - 1-dose 75+ series) 2025 Influenza Vaccine (Season Ended) 2025 Hepatitis B series for 19+ Aged Out N o longer eligible based on patient's age to complete this topic [place] [address] MEDICARE PART B HB ONLY Care Teams Credit Risk Modeler Relationship Specialty Start Date End Date Montserrat Espinoza MD [address] [place] [address] PCP - General Family Practice 04/03/23
--- NOTE | 2025-01-14 12:54 | CRLHL7_ITS ---
For Patients: As a result of the Cures Act, medical imaging exams and procedure reports are released immediately into your electronic medical record. You may view this report before your referring provider. If you have questions, please contact your health care provider. INDICATION: Chest pain, palpitations TECHNIQUE: Chest radiograph 2 views COMPARISON: 04/02/2023 FINDINGS: Mediastinum: The mediastinum is normal in appearance. The heart silhouette is normal in size and morphology. Lung: Both lungs are unremarkable in appearance. No sign of pleural effusion seen. No pneumothorax is identified. Bone and Soft tissue: Unremarkable for age. IMPRESSION: 1. No acute cardiopulmonary disease is seen. Dictated by: Jim Platt MD @ 01/14/2025 13:22:13 (Electronically Signed)
[2025-01-14 13:05] LABS: Basophils Absolute Auto 0.02 K/uL (0.00-0.30); Basophils Percent Auto 0.4 % (0.0-3.0); Eosinophils Absolute Auto 0.11 K/uL (0.00-0.50); Hematocrit 40.1 % (33.0-51.0); Hemoglobin* 13.1 gm/dL (12.0-16.0); Lymphocytes Absolute Auto 1.29 K/uL (0.90-2.90); Lymphocytes Percent Auto 23.8 % (20-44); Mean Corpuscular HGB Conc 33 gm/dL (32-36); Mean Corpuscular Hemoglobin 32 pg (26-34); Mean Corpuscular Volume 98 fL (80-100); Monocytes Percent Auto 9.6 % (0.0-11.0); Neutrophils Absolute Auto 3.47 K/uL (1.7-7.0); Neutrophils Percent Auto 64.2 % (42.0-72.0); Platelet Count* 178 K/uL (140-440); RDW Coefficient of Variation % 12.2 % (11.5-15.5); White Blood Count* 5.41 K/uL (4.50-11.00)
[2025-01-14 13:09] LABS: Slide Review Reflex No
--- NOTE | 2025-01-14 13:12 | ED_ITS ---
HPI - Chest Pain General Chief Complaint: Chest Pain Stated Complaint: chest, back and jaw pain. Time Seen by Provider: 01/14/25 12:23 Source: patient Mode of arrival: ambulatory Limitations: no limitations History of Present Illness HPI narrative: Patient is a 74-year-old female with a history of hyperlipidemia, hypothyroidism, intermittent hypertension not currently on hypertensive medications presenting to the emergency department for chest pain. She states today will worsening her teeth she had about a 40 minute episode of dull midsternal chest pain that radiated to her back and right jaw. States the pain never got sharp but was not going away so she was concerned and came in to be evaluated. States on the drive in symptoms seemed to resolve. Had symptoms like this 2 years ago they also resolved in a similar fashion. She follow-up with cardiology and had a stress test that was non concerning and further follow-up was not indicated she states. She has not seen a transplanter orchid since then. Denies any associated shortness of breath. Did not notice any lightheadedness or dizziness. Denies abdominal pain, fevers, chills, abdominal pain, diarrhea, constipation, headache, weakness, numbness. States she still has a very mildly dull back pain but the jaw and chest pain has resolved. Did not have any pain radiating to her arms. Related Data Home Medications ?Medication ?Instructions ?Recorded ?Confirmed losartan 50 mg tablet 50 mg PO DAILY 02/27/2412/20 valacyclovir 500 mg tablet 500 mg PO BID PRN 09/25/24 Previous Rx's ?Medication ?Instructions ?Recorded bupropion HCl 150 mg 24 hr tablet, 150 mg PO QDAY #90 tabs 04/01/24 extended release bupropion HCl 75 mg tablet 75 mg PO DAILY #90 tabs 08/13 levothyroxine 50 mcg tablet 50 mcg PO DAILY #90 tabs 0 04/01/24 trazodone 50 mg tablet 25 mg (1/2 x 50 mg) PO DAILY #45 04/01/24 tabs atorvastatin 10 mg tablet 10 mg PO QHS #90 tabs Allergies Allergy/AdvReac Type Severity Reaction Status Date / Time No Known Drug Allergies Allergy Verified 09/25/24 14:30 Review of Systems Status of ROS Reports: 10 or more systems reviewed and unremarkable except as noted in History and below [facility] Medical History Fatigue ?R53.83 - Other fatigue (ICD-10) Vision changes ?H53.9 - Unspecified visual disturbance (ICD-10) Ankle fracture ?S82.899A - Other fracture of unspecified lower leg, initial encounter for closed fracture (ICD-10) Surgical History H/O excision of ganglion cyst ?Z98.890 - Other specified postprocedural states (ICD-10) History of vaginal delivery History of colonoscopy ?Z98.890 - Other specified postprocedural states (ICD-10) History of local excision of skin lesion (11/16/23) ?Z98.890 - Other specified postprocedural states (ICD-10) History of cataract surgery (2019) ?Z98.49 - Cataract extraction status, unspecified eye (ICD-10) History of bilateral total hip arthroplasty ?Z96.643 - Presence of artificial hip joint, bilateral (ICD-10) Family History Sister High blood pressure Melanoma Thyroid disease Tongue carcinoma Maternal Grandfather Heart disease Father Parkinson's disease Mother Thyroid disease High cholesterol Maternal Grandmother Thyroid disease Paternal Grandfather Myocardial infarction Heart disease Stroke Social History What is your current living situation?: I presently have a place to live Problems where you live: no known problems In the past 12 months, utilities in danger of being shut off: no In past 12 months, lack of transportation kept you from medical appts, meetings, work, or getting things needed for daily living: no In the past 12 mos, have been you worried that your food would run out before you had money to buy more?: never true In the past 12 mos, the food you bought just didn't last and you didn't have money to buy more?: never true Smoking Status: Never smoker How often do you have a drink containing alcohol: 2-4 times a month AUDIT-C Alcohol total score: 2 Non-prescribed substance use: denies use How often does anyone, including family, friends and others, physically hurt you : never How often does anyone, including family, friends and others, insult or talk down to you: never How often does anyone, including family, friends and others, threaten you with harm: never How often does anyone, including family, friends and others, scream or curse at you: never Exam Narrative Exam Narrative: Const: Well-nourished, Well-developed, in mild distress Eyes: PERRL, no conjunctival injection, and symmetrical lids HENT: Atraumatic external nose and ears. Moist mucous membranes. Neck: Symmetric, trachea midline, No thyromegaly. CVS: RRR, No murmurs or gallops. Peripheral pulses 2+ and equal in all extremities RESP: Unlabored respiratory effort. Clear to auscultation bilaterally. GI: Nontender/Nondistended, No rebound or guarding. MSK:Extremities w/o deformity, Normal Active ROM Skin: Warm, Dry. No rashes or lesions. Neuro: Normal Muscle tone, No focal neurological deficits. Psych: Awake, Alert, & Oriented x3. Appropriate mood and affect. Const Vital Signs, click to edit/add: Vital Signs - 24 hr 01/14/25 12:25 01/14/25 12:45 01/14/25 13:01 Temperature 97.7 F Pulse Rate 62 Pulse Rate [Pulse Oximeter] 68 62 Respiratory Rate 16 14 12 Blood Pressure 143/77 H Blood Pressure [Right Upper Arm] 150/72 H 148/77 H Pulse Oximetry 99 99 98 Oxygen Delivery Method Room Air Room Air Room Air 01/14/25 13:02 01/14/25 13:15 01/14/25 13:30 Temperature Pulse Rate 62 61 65 Pulse Rate [Pulse Oximeter] Respiratory Rate 11 L 11 L 9 L Blood Pressure Blood Pressure [Right Upper Arm] Pulse Oximetry 97 99 98 Oxygen Delivery Method 01/14/25 13:45 01/14/25 14:05 01/14/25 14:15 Temperature Pulse Rate 70 66 Pulse Rate [Pulse Oximeter] Respiratory Rate 16 56 H 19 Blood Pressure Blood Pressure [Right Upper Arm] Pulse Oximetry 99 98 Oxygen Delivery Method 01/14/25 14:30 01/14/25 14:45 01/14/25 15:00 Temperature Pulse Rate 66 67 63 Pulse Rate [Pulse Oximeter] Respiratory Rate 12 14 14 Blood Pressure Blood Pressure [Right Upper Arm] Pulse Oximetry 97 99 100 Oxygen Delivery Method 01/14/25 15:02 01/14/25 15:15 01/14/25 15:30 Temperature Pulse Rate 63 63 62 Pulse Rate [Pulse Oximeter] Respiratory Rate 10 L 7 L 16 Blood Pressure 130/109 H Blood Pressure [Right Upper Arm] Pulse Oximetry 100 97 99 Oxygen Delivery Method Room Air 01/14/25 15:45 01/14/25 16:00 01/14/25 16:02 Temperature Pulse Rate 61 Pulse Rate [Pulse Oximeter] Respiratory Rate 8 L 6 L 9 L Blood Pressure 151/77 H Blood Pressure [Right Upper Arm] Pulse Oximetry 99 Oxygen Delivery Method Course Vital Signs Vital signs: Initial Vital Signs Temperature 97.7 F 01/14/25 12:25 Temperature Source Temporal Artery Scan 01/14/25 12:25 Pulse Rate 68 01/14/25 12:25 Respiratory Rate 16 01/14/25 12:25 Blood Pressure 150/72 H 01/14/25 12:25 Blood Pressure Mean 98 01/14/25 12:25 Pulse Oximetry 99 01/14/25 12:25 Oxygen Delivery Method Room Air 01/14/25 12:25 Vital Signs Temperature 97.7 F 01/14/25 12:25 Pulse Rate 68 01/14/25 12:25 Respiratory Rate 16 01/14/25 12:25 Blood Pressure 150/72 H 01/14/25 12:25 Pulse Oximetry 99 01/14/25 12:25 Oxygen Delivery Method Room Air 01/14/25 12:25 Temperature 97.7 F 01/14/25 12:25 Pulse Rate 61 01/14/25 15:45 Respiratory Rate 9 L 01/14/25 16:02 Blood Pressure 151/77 H 01/14/25 16:02 Pulse Oximetry 99 01/14/25 15:45 Oxygen Delivery Method Room Air 01/14/25 15:02 MDM - Chest Pain MDM Narrative Medical decision making narrative: The patient is a 74-year-old female presenting for chest pain. The differential diagnosis of chest pain is broad and includes common etiologies such as musculoskeletal strain, GERD, pneumonia, etc. More serious etiologies considered include PE, coronary artery disease, pneumothorax, aortic dissection, aortic aneurysm. My concern for PE, aortic dissection and aortic aneurysm but very low at this time. Symptoms do not seem consistent with them and her vital signs are otherwise unremarkable. Will do chest x-ray order to look for signs of pneumothorax or pneumonia. EKG and troponin ordered to look for signs of ACS. Will also order magnesium, BMP, viral swabs, and CBC. Patient's EKG and lab work shows no acute concerning abnormalities. Repeat troponin was done diarrhea hours later that was also within normal limits. X- ray reviewed by myself the radiologist shows no acute concerning abnormalities. Patient is asymptomatic at this time. I am not sure what is causing her symptoms after speaking to her again she states it is actually the 3rd or 4th time this has happened and not just the 2nd. She will follow-up with her primary care provider. She is agreeable for discharge. Lab Data Labs: Lab Results 01/14/25 01/14/25 01/14/25 Range/Units 12:50 12:54 13:00 WBC 5.41 (4.50-11.00) K/uL RBC 4.10 (4.00-5.20) m/uL Hgb 13.1 (12.0-16.0) gm/dL Hct 40.1 (33.0-51.0) % MCV 98 (80-100) fL MCH 32 (26-34) pg MCHC 33 (32-36) gm/dL RDW Coeff of Slick 12.2 (11.5-15.5) % Plt Count 178 (140-440) K/uL Neut % (Auto) 64.2 (42.0-72.0) % Lymph % (Auto) 23.8 (20-44) % Antelope % (Auto) 9.6 (0.0-11.0) % Eos % (Auto) 2.0 (0.0-7.0) % Baso % (Auto) 0.4 (0.0-3.0) % Neut # (Auto) 3.47 (1.7-7.0) K/uL Lymph # (Auto) 1.29 (0.90-2.90) K/uL Antelope # (Auto) 0.50 (0.00-0.90) K/UL Eos # (Auto) 0.11 (0.00-0.50) K/uL Baso # (Auto) 0.02 (0.00-0.30) K/uL Abs Immat Gran (auto) 0.00 (0.00-0.30) K/uL Imm/Tot Granulo (auto) 0.0 % Sodium 138 (135-149) mmol/L Potassium 4.3 (3.6-5.1) mmol/L Chloride 106 (96-114) mmol/L Carbon Dioxide 28 (20-32) mmol/L Anion Gap 4 L (7-15) mEq/L BUN 18 (7-30) mg/dL Creatinine 0.8 (0.5-1.5) mg/dL Estimated Creat Clear 53.37 Estimated GFR 77 ml/min Glucose 92 (60-115) mg/dL Calcium 9.3 (8.4-10.6) mg/dL Magnesium 2.1 (1.5-2.6) mg/dL Troponin I < 0.01 (0.01-0.04) ng/mL SARS-CoV-2 (PCR) Negative SARS-CoV-2 (Negative) Influenza Type A (PCR) Negative PCR FLU A (Negative) Influenza Type B (PCR) Negative PCR FLU B (Negative) RSV (PCR) Negative PCR RSV (Negative) POC Troponin I 0.00 L (0.01-0.04) ng/ml 01/14/25 Range/Units 16:00 WBC (4.50-11.00) K/uL RBC (4.00-5.20) m/uL Hgb (12.0-16.0) gm/dL Hct (33.0-51.0) % MCV (80-100) fL MCH (26-34) pg MCHC (32-36) gm/dL RDW Coeff of Slick (11.5-15.5) % Plt Count (140-440) K/uL Neut % (Auto) (42.0-72.0) % Lymph % (Auto) (20-44) % Antelope % (Auto) (0.0-11.0) % Eos % (Auto) (0.0-7.0) % Baso % (Auto) (0.0-3.0) % Neut # (Auto) (1.7-7.0) K/uL Lymph # (Auto) (0.90-2.90) K/uL Antelope # (Auto) (0.00-0.90) K/UL Eos # (Auto) (0.00-0.50) K/uL Baso # (Auto) (0.00-0.30) K/uL Abs Immat Gran (auto) (0.00-0.30) K/uL Imm/Tot Granulo (auto) % Sodium (135-149) mmol/L Potassium (3.6-5.1) mmol/L Chloride (96-114) mmol/L Carbon Dioxide (20-32) mmol/L Anion Gap (7-15) mEq/L BUN (7-30) mg/dL Creatinine (0.5-1.5) mg/dL Estimated Creat Clear Estimated GFR ml/min Glucose (60-115) mg/dL Calcium (8.4-10.6) mg/dL Magnesium (1.5-2.6) mg/dL Troponin I (0.01-0.04) ng/mL SARS-CoV-2 (PCR) (Negative) Influenza Type A (PCR) (Negative) Influenza Type B (PCR) (Negative) RSV (PCR) (Negative) POC Troponin I 0.00 L (0.01-0.04) ng/ml Imaging Data Chest x-ray: Attestation: I have reviewed the pertinent imaging results. Radiologist's impression: 1. No acute cardiopulmonary disease is seen. Dictated by: Jim Platt MD @ 01/14/2025 13:22:13 ECG Data Attestation: I personally reviewed and interpreted this ECG as follows: Prior ECG tracings: available for review Interpretation: Normal size shape pattern is 61 beats per minute, normal intervals, normal axis, no ST or T-wave abnormalities. Discharge Plan Discharge Clinical Impression: Atypical chest pain Patient Disposition: Home, Self-Care Condition: Stable Instructions: Noncardiac Chest Pain (ED) Additional Instructions: I cannot say for certain what is causing chest pain but I do not see any acute concerning abnormalities on my exam. I do believe you are safe for discharge and you should follow-up with your primary care provider. Return to emergency department for new or worsening symptoms. Prescriptions: No Action losartan 50 mg tablet 50 mg PO DAILY bupropion HCl 150 mg tablet extended release 24 hr 150 mg PO QDAY Qty: 90 3RF bupropion HCl 75 mg tablet 75 mg PO DAILY Qty: 90 3RF levothyroxine 50 mcg tablet 50 mcg PO DAILY Qty: 90 3RF trazodone 50 mg tablet 25 mg PO DAILY Qty: 45 3RF valacyclovir 500 mg tablet 500 mg PO BID PRN Rx Instructions: Take 500mg 2x/day x3 days for herpes outbreak. atorvastatin 10 mg tablet 10 mg PO QHS Qty: 90 3RF Follow Up/Referrals: Robert Cason MD [Primary Care Provider, Family Practice] Stand Alone Forms: [facility] Info Instructions
[2025-01-14 13:20] LABS: Chloride* 106 mmol/L (96-114); Potassium* 4.3 mmol/L (3.6-5.1); Sodium* 138 mmol/L (135-149)
[2025-01-14 13:23] LABS: Anion Gap 4 mEq/L (7-15); Blood Urea Nitrogen* 18 mg/dL (7-30); Calcium* 9.3 mg/dL (8.4-10.6); Carbon Dioxide* 28 mmol/L (20-32); Creatinine* 0.8 mg/dL (0.5-1.5); Est. Creatinine Clearance* 53.37; Estimated Glomerular Filt Rate 77 ml/min; Glucose* 92 mg/dL (60-115)
[2025-01-14 13:24] LABS: Magnesium* 2.1 mg/dL (1.5-2.6)
[2025-01-14 13:58] LABS: PCR FLU A Negative PCR FLU A (Negative); PCR FLU B Negative PCR FLU B (Negative); PCR RSV Negative PCR RSV (Negative); SARS PCR* Negative SARS-CoV-2 (Negative)
[2025-01-14 14:12] LABS: Troponin I* < 0.01 ng/mL (0.01-0.04)
== END 2025-01-14 16:46 | disposition home or self-care (01) ==
PROVIDERS: Emergency Provider Student in an Organized Health Care Education/Training Program; PCP Family Medicine
DX: R07.9 Chest pain, unspecified (principal)
CPT/HCPCS: 36415; 71046; 80048; 83735; 84484; 85025; 87631; 93005; 99284

== ENCOUNTER 2025-01-28 14:48 | Outpatient (CLI) | payer MEDICARE, OTHER, SELFPAY ==
[2025-01-28] MEDS: PERFLUTREN LIPID MICROSPHERES 2 ML VIAL IVP (15:52)
--- NOTE | 2025-01-28 16:17 | P.STN_ITS ---
Stress Test Note Date Date of test: 01/28/25 Providers Primary care provider: Robert Cason Stress test physician: Bud Pradhan Stress Test Note Stress test ordered: Stress Echo Indication for test: Chest pain Stress test medicine: Definity Results discussion: This pleasant lady presents for the above test after discussion the risks benefits and side effects she would like to proceed. Cardiac stress test medical history form is reviewed in detail. Pretest EKG shows normal sinus rhythm, ventricular rate 74 BP 128/82. Standard Pedro protocol is employed over a duration of 5 minutes 31 seconds and achieved a metabolic equivalent 7.1 Mets, heart rate was 159 which is 128%. Test is terminated because of fatigue, and some shortness of breath. Review of the tracing did not show any evidence of any significant ischemia, ST wave depression elevation there is no dysrhythmias. She recovered normally. Conditioning was felt to be good Impression: Negative electrographic tracing of stress echo, inducement of shortness of breath. Follow up suggested: Await echo imaging, this will be read by Cardiology, clinical correlation with this will be needed, patient left this testing facility good condition. No com plications
[2025-01-28 16:22] VITALS: BP 144/80; PULSE 79; RESP 18
== END 2025-01-28 14:49 | disposition home or self-care (01) ==
LOC: STRESS 14:50
PROVIDERS: PCP Family Medicine; Visit Provider Family Medicine
DX: R07.89 Other chest pain (principal); I34.0 Nonrheumatic mitral (valve) insufficiency; I35.1 Nonrheumatic aortic (valve) insufficiency; R06.09 Other forms of dyspnea
CPT/HCPCS: 93016; 93325; 93351; Q9957

== ENCOUNTER 2025-02-18 08:04 | Outpatient (CLI) | payer MEDICARE, OTHER, SELFPAY ==
--- NOTE | 2025-02-18 09:26 | P.ANES_ITS ---
Anesthesia Charges Start Date/Time Anesthesia Start Date: 02/18/25 Anesthesia Start Time: 08:54 Stop Date/Time Anesthesia Stop Date: 02/18/25 Anesthesia Stop Time: 09:25 Summary Extremes of Age - Over 70 or under 1: PARTS IDENTIFIER Coding CPT Codes CPT Codes: SACHIN LWR INTST NDSC NOS - 11189 ([id number]) P2 - PATIENT W/MILD SYST DISEASE, QX - PARTS IDENTIFIER SVC W/ MD MED DIRECTION, QK - PROSTHODONTIST 2-4 CNCRNT ANES PROC Additional Codes: Summary - Extremes of Age - Over 70 or under 1: PARTS IDENTIFIER ([id number])
--- NOTE | 2025-02-18 09:26 | W.ANESCHARGE ---
Anesthesia Charges Start Date/Time Anesthesia Start Date: 02/18/25 Anesthesia Start Time: 08:54 Stop Date/Time Anesthesia Stop Date: 02/18/25 Anesthesia Stop Time: 09:25 Summary Extremes of Age - Over 70 or under 1: HYGIENE ASSISTANT Coding CPT Codes CPT Codes: SACHIN LWR INTST NDSC NOS - 79583 ([id number]) P2 - PATIENT W/MILD SYST DISEASE, QX - HYGIENE ASSISTANT SVC W/ MD MED DIRECTION, QK - ROD PLACER 2-4 CNCRNT ANES PROC Additional Codes: Summary - Extremes of Age - Over 70 or under 1: HYGIENE ASSISTANT ([id number])
--- NOTE | 2025-02-18 09:35 | W.ANESCHARGE ---
Anesthesia Charges Start Date/Time Anesthesia Start Date: 02/18/25 Anesthesia Start Time: 08:54 Stop Date/Time Anesthesia Stop Date: 02/18/25 Anesthesia Stop Time: 09:25 Summary Extremes of Age - Over 70 or under 1: MDA Coding CPT Codes CPT Codes: ANES LWR INTST NDSC NOS - 26639 ([id number]) QK - COMPOSITION WORKER 2-4 CNCRNT ANES PROC, QX - RESEARCH GREENHOUSE SUPERVISOR SVC W/ MD MED DIRECTION, P2 - PATIENT W/MILD SYST DISEASE Additional Codes: Summary - Extremes of Age - Over 70 or under 1: MDA ([id number])
--- OUTSIDE RECORDS SUMMARY | 2025-02-19 00:39 | XMS_ITS | Clinical Summary ---
Author Organization [facility] Address [address] [place] [id number] Care Team Providers Care Product Development Worker Name Role Phone Montserrat Espinoza MD Primary Care Provider [phone] Allergies No known active allergies Medications buPROPion [...] tablet Take by mouth at bedtime. Active Encounters Date Type Department Care Team Description 01/28/2025 3:00 PM CDT Ancillary Procedure [facility] [address] [place] [address] from Last 3 Months Social History Tobacco Use Types Packs/Day Years [...] Health Maintenance Due Date Last Done Comments (IA) Tdap 1961 Hepatitis C screening for ag [...] 04/06/20 23 COVID-19 vaccine series ( season) 2024 RSV vaccine for adults or (1 - 1-dose 75+ series) 2025 Influenza Vaccine (Season Ended) 2025 Hepatitis B series for 19+ Aged Out N o longer eligible based on patient's age to complete this topic Procedures Procedure Name Priority Date/Time Associated Diagnosis Comments ECHO STRESS EXRCSE W CNTRST W COLOR W LTD DOPPLER Routine 01/28/2025 4:04 PM CDT Other chest pain from Last 3 Months Results * ECHO STRESS EXRCSE W CNTRST W COLOR W LTD DOPPLER (01/28/2025 4:04 PM CDT) AORTIC VALVE MEAN PG 4 mmHg PEAK TR VELOCITY 2.1 m/s LVEDD 4.0 cm EJECTION FRACTION 55 - 60% Anatomical Region Laterality Modality Ultrasound 01/28/2025 3:29 PM CDT Narrative 01/28/2025 4:41 PM CDT STRESS ECHOCARDIOGRAM NAS BLOOM : 1950 74 years Study Date: 01/28/2025 3:29:44 PM Gender: F BP: 122/82 mmHg Height: 178.00 cm BSA: 1.90 m Weight: 73.00 kg Tech: GENO Referring MD: ROBERT CASON Site: [facility] Reading Location: MOBILE OP Patient Location: Outpatient. Procedure: Stress Echo, Color Doppler, Limited Spectral Doppler and Contrast. Pedro stress echo. Indication for study: Chest pain, Dyspnea on exertion Cardiac Rhythm: Normal sinus.Study quality: Fair. Final Impressions: 1. Maximum stress test with 109.5% of age predicted maximum heart rate achieved. 2. During stress exam the patient developed shortness of breath. 3. See separate report for EKG interpretation. 4. The aortic valve is calcified, no stenosis and mild to moderate regurgitation. 5. Post stress, normal left ventricular size, normal global systolic function with an estimated EF of 65 to 70%. 6. Negative stress echo for ischemia. Stress Data: HR Systolic Diastolic Time Duration Minutes Seconds Baseline 68 bpm 122 82 mmHg 5 :40 Peak 159 bpm 158 92 mmHg Max Pred HR 145 % of Max 110% Double Product [id number] Echo Findings:This is a negative stress echo test for ischemia. Post stress, normal left ventricular size, normal global systolic function with an estimated EF of 65 to 70%. LV regional wall motion abnormalities are not present post exercise. EKG:See separate report for EKG interpretation. Exam Protocol:The patient presents with no significant symptoms at baseline. The patient exercised 5 min 40 sec to stage II according to the Pedro stress echo protocol. Test terminated due to fatigue and shortness of breath. 7.0 METS were achieved. The patient achieved a heart rate of 159 bpm which is 109.5% of maximum predicted heart rate. Maximum systolic blood pressure was 158 [place] [id number]. Maximum stress test with 109.5% of age predicted maximum heart rate achieved. The blood pressure response was normal. The patient developed shortness of breath during the stress exam. Symptoms resolved with rest. Low (less than 1% annual mortality rate) non invasive risk stratification. Chamber Sizes and Function Not well visualized left ventricular size, normal global systolic function with an estimated EF of 55 - 60%. LV regional wall motion abnormalities are not present. Left atrial size is normal. Right ventricular cavity size is normal, global systolic RV function is normal. RV wall thickness is normal. The right atrium is normal. Valves, RV Pressures and Diastolic Function The aortic valve is calcified, no stenosis and mild to moderate regurgitation. The mitral valve is normal in structure, trace mitral regurgitation. The tricuspid valve is normal in structure, trace tricuspid regurgitation. The tricuspid regurgitant velocity is 2.1 m/s, the estimated right ventricular systolic pressure is 17 mmHg plus right atrial pressure. The pulmonic valve is not well visualized. Masses, Effusion, Shunts There is no pericardial effusion. The inferior vena cava is normal sized, respiratory size variation greater than 50%. MEASUREMENTS AND CALCULATIONS 2-D Measurements and LV Function: LVID (d) 4.0 cm LV FS% (2D) 28 % LVID (s) 2.9 cm LVOT diameter 2.1 cm IVS (d) 0.9 cm HR 68 bpm LVPW (d) 1.0 cm LA Vol index 21 ml/m2 Ao Sinus 3.7 cm RA Vol index 11 ml/m2 Ao Sinus ULN 3.8 cm * RV Basal Diam 3.2 cm Asc Ao 3.2 cm Asc Ao ULN 4.0 cm * * Input BSA outside of range, reported values correspond to BSA = 1.9 Diastology: Mitral Tissue Doppler E Peak 0.48 m/s e', Septum 0.08 m/s A Peak 0.64 m/s e', Lateral 0.09 m/s E/A 0.7 E/e' Average 5.75 DT 186 msec Aortic Valve: Vmax 1.2 m/s PRASANTH (V) 3.03 cm VTI 0.29 m PRASANTH (I) 2.82 cm LVOT V max 1.0 m/s Max PG 6 mmHg LVOT VTI 0.23 m Mean PG 4 mmHg SV 82 ml Dim Index 0.80 SV index 43 ml/m Mitral Valve: MVA 4.1 cm MV P 1/2 54 msec Tricuspid Valve and estimated PA pressures: TR Vmax 2.1 m/s TAPSE 1.9 cm TR maxG 17 mmHg Pulmonic Valve: PV Vmax 0.9 m/s Contrast documentation: 4cc ml diluted Definity, lot #[id number], NDC# [id number] was administered peripherally to enhance visualization of all left ventricular segments. . This study was interpreted by an [facility] accredited facility. CC: [facility] (med [facility]) [facility]. Final Procedure Note Josué Mcnulty MD - 01/28/2025 STRESS ECHOCARDIOGRAM NAS BLOOM : 1950 74 years Study Date: 01/28/2025 3:29:44 PM Gender: F BP: 122/82 mmHg Height: 178.00 cm BSA: 1.90 m Weight: 73.00 kg Tech: [facility] Referring MD: ROBERT CASON Site: [facility] Reading Location: MOBILE OP Patient Location: Outpatient. Procedure: Stress Echo, Color Doppler, Limited Spectral Doppler andContrast. Pedro stress echo. Indication for study: Chest pain, Dyspnea on exertion Cardiac Rhythm: Normal sinus.Study quality: Fair. Final Impressions: 1. Maximum stress test with 109.5% of age predicted maximum heart rateachieved. 2. During stress exam the patient developed shortness of breath. 3. See separate report for EKG interpretation. 4. The aortic valve is calcified, no stenosis and mild to moderateregurgitation. 5. Post stress, normal left ventricular size, normal global systolicfunction with an estimated EF of 65 to 70%. 6. Negative stress echo for ischemia. Stress Data: HR Systolic Diastolic Time Duration Minutes Seconds Baseline 68 bpm 122 82 mmHg 5 :40 Peak 159 bpm 158 92 mmHg Max Pred HR 145 % of Max 110% Double Product [id number] Echo Findings:This is a negative stress echo test for ischemia. Poststress, normal left ventricular size, normal global systolic function withan estimated EF of 65 to 70%. LV regional wall motion abnormalities arenot present post exercise. EKG:See separate report for EKG interpretation. Exam Protocol:The patient presents with no significant symptoms atbaseline. The patient exercised 5 min 40 sec to stage II according to [facility] stress echo protocol. Test terminated due to fatigue and shortnessof breath. 7.0 METS were achieved. The patient achieved a heart rate of159 bpm which is 109.5% of maximum predicted heart rate. Maximum systolicblood pressure was 158 [place] [id number]. Maximumstress test with 109.5% of age predicted maximum heart rate achieved. Theblood pressure response was normal. The patient developed shortness ofbreath during the stress exam. Symptoms resolved with rest. Low (less than1% annual mortality rate) non invasive risk stratification. Chamber Sizes and Function Not well visualized left ventricular size, normal global systolic functionwith an estimated EF of 55 - 60%. LV regional wall motion abnormalitiesare not present. Left atrial size is normal. Right ventricular cavity sizeis normal, global systolic RV function is normal. RV wall thickness isnormal. The right atrium is normal. Valves, RV Pressures and Diastolic Function The aortic valve is calcified, no stenosis and mild to moderateregurgitation. The mitral valve is normal in structure, trace mitralregurgitation. The tricuspid valve is normal in structure, trace tricuspidregurgitation. The tricuspid regurgitant velocity is 2.1 m/s, theestimated right ventricular systolic pressure is 17 mmHg plus right atrialpressure. The pulmonic valve is not well visualized. Masses, Effusion, Shunts There is no pericardial effusion. The inferior vena cava is normal sized,respiratory size variation greater than 50%. MEASUREMENTS AND CALCULATIONS 2-D Measurements and LV Function: LVID (d) 4.0 cm LV FS% (2D) 28% LVID (s) 2.9 cm LVOT diameter2.1 cm IVS (d) 0.9 cm HR 68bpm LVPW (d) 1.0 cm LA Vol index 21ml/m2 Ao Sinus 3.7 cm RA Vol index 11ml/m2 Ao Sinus ULN 3.8 cm * RV Basal Diam3.2 cm Asc Ao 3.2 cm Asc Ao ULN 4.0 cm * * Input BSA outside of range, reported values correspond to BSA = 1.9 Diastology: Mitral Tissue Doppler E Peak 0.48 m/s e', Septum 0.08 m/s A Peak 0.64 m/s e', Lateral 0.09 m/s E/A 0.7 E/e' Average 5.75 DT 186 msec Aortic Valve: Vmax 1.2 m/s PRASANTH (V) 3.03 cm VTI 0.29 m PRASANTH (I) 2.82 cm LVOT V max 1.0 m/s Max PG 6 mmHg LVOT VTI 0.23 m Mean PG 4 mmHg SV 82 ml Dim Index 0.80 SV index 43 ml/m Mitral Valve: MVA 4.1 cm MV P 1/2 54 msec Tricuspid Valve and estimated PA pressures: TR Vmax 2.1 m/s TAPSE 1.9 cm TR maxG 17 mmHg Pulmonic Valve: PV Vmax 0.9 m/s Contrast documentation: 4cc ml diluted Definity, lot #[id number], [facility]#[id number] was administered peripherally to enhance visualization of allleft ventricular segments. . This study was interpreted by an [facility] accredited facility. CC: [facility] (med records) [facility]. Final Robert Cason MD ECHO ORD Final Result from Last 3 Months Insurance MEDICARE PB ONLY [facility] [place] [address] MEDICARE PART B HB ONLY Care Teams Product Development Worker Relationship Specialty Start Date End Date Montserrat Espinoza MD [address] [place] [address] PCP - General Family Practice 04/03/23
== END 2025-02-18 08:05 | disposition home or self-care (01) ==
PROVIDERS: PCP Family Medicine; Visit Provider Surgery
DX: Z12.11 Encounter for screening for malignant neoplasm of colon (principal); R19.5 Other fecal abnormalities; K64.8 Other hemorrhoids; D12.8 Benign neoplasm of rectum
CPT/HCPCS: 00811; 45385; 99100; J2704

== ENCOUNTER 2025-05-12 15:08 | Outpatient (CLI) | payer MEDICARE, OTHER, SELFPAY | END 2025-05-12 15:09 | disposition home or self-care (01) | LOC: NFLDREF 15:09 | PROVIDERS: PCP Family Medicine; Visit Provider Family Medicine | DX: E03.9 Hypothyroidism, unspecified (principal) | CPT/HCPCS: 84443 ==

== ENCOUNTER 2025-08-06 13:33 | Outpatient (CLI) | payer MEDICARE, OTHER, SELFPAY ==
--- NOTE | 2025-08-06 13:40 | CRLHL7_ITS ---
For Patients: As a result of the Century Cures Act, medical imaging exams and procedure reports are released immediately into your electronic medical record. You may view this report before your referring provider. If you have questions, please contact your health care provider. INDICATION: BILATERAL SCREENING MAMMOGRAM, ASYMPTOMATIC 75 Y/O FEMALE COMPARISON: 07/15/2024, 03/17/2021 TECHNIQUE: Digital mammogram in CC and MLO projections including computer-aided detection (CAD) and tomosynthesis. BREAST COMPOSITION: There are scattered areas of fibroglandular density. FINDINGS: No suspicious findings. ASSESSMENT: BI-RADS 1 Negative RECOMMENDATION: Annual screening mammogram. A lay language report of this examination will be provided to the patient. Dictated by: Geoff Moncada MD @ 08/07/2025 09:49:53 (Electronically Signed)
== END 2025-08-06 13:34 | disposition home or self-care (01) ==
LOC: MAMMO 13:33
PROVIDERS: PCP Family Medicine; Visit Provider Family Medicine
DX: Z12.31 Encounter for screening mammogram for malignant neoplasm of breast (principal)
CPT/HCPCS: 77063; 77067